=== PATIENT | male | born 1940 | race Caucasian/White ===

== ENCOUNTER 2019-02-20 08:18 | Day surgery (SDC) | payer OTHER, SELFPAY ==
[2019-02-15 08:01] VITALS: BMI 28.5
[2019-02-20] VITALS (9 sets, daily range): BP systolic 120–141; BP diastolic 65–84; PULSE 84–95; RESP 12–18; TEMP 36.3–36.6; O2SAT 92–98; BMI 28.0
--- NOTE | 2019-02-20 | DI.RAD.S_ITS ---
PROCEDURE: XR LUMBAR SPINE 2-3V INDICATIONS: L4-5 LAMINECTOMY TECHNIQUE: 2 views of the lumbar spine were acquired. COMPARISON: None. FINDINGS: Spot fluoroscopic images demonstrating surgical instruments projecting in the posterior paraspinal soft tissues at the level of L4-L5. Dictated by: Stevan Welch M.D. on 02/20/2019 at 17:37 Approved by: Stevan Welch M.D. on 02/20/2019 at 17:37
[2019-02-20] MEDS: LACTATED RINGERS 1,000 ML 42 ML IV (09:01)
--- NOTE | 2019-02-20 09:28 | PM.PREOP ---
Pre-operative Note Interval Note History & Physical reviewed/Exam performed by Physician: Yes Changes to H&P: No
[2019-02-20] MEDS: CEFAZOLIN 2 GM/100 ML FROZ.PIGGY IV (10:15)
--- NOTE | 2019-02-20 10:43 | SUR.OPER ---
Prone on spine table, head in foam head support, padded chest and pelvic supports, gel pad at knees, lower legs supported by pillows; nipples, genitalia and toes free of pressure, arms secured on foam padded arm boards at <90 degrees abduction. Tape over blanket at thigh secured to table.
[2019-02-20] MEDS: SODIUM CHLORIDE 0.9% 1,000 ML, GENTAMICIN 80 MG IRR (10:48)
[2019-02-20] MEDS: BUPIVACAINE 0.25% (PF) 8 ML, fentaNYL 100 MCG INJ (10:49)
[2019-02-20] MEDS: THROMBIN (RECOMBINANT) 5,000 UNIT VIAL 5000 UNIT TOP (10:49)
[2019-02-20] MEDS: VANCOMYCIN 1,000 MG VIAL 1000 MG TOP (10:50)
--- NOTE | 2019-02-20 11:50 | P.OP_ITS ---
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 They had failed conservative management and requested operative intervention. Risks and benefits of surgery were discussed and appropriate consents were obtained. Surgeon: Yahir Almonte Compositor Apprentice: Ria Jim Anesthesia Type: General Operative Notes Findings: None Closure Type: primary Estimated Blood Loss (mL): 10 Procedure in detail: Patient was brought to the operating room and intubated on the table. A time-out was performed. There were rolled over the well-padded prone position on the Darnell table. The back was prepped and draped in standard sterile fashion. Preoperative antibiotics were given. Using fluoroscopy, a 3 cm incision was made to the well-marked right of the midline at the L4-5 level. We used Bovie to come down to and split the fascia. We then used the Globus MARS dilators with fluoroscopy and then opened our retractors. The soft tissue was cleared off with Bovie, a marker was placed, an x-ray was taken to confirm positioning. We had started lateral to come in at an oblique angle to be able to adequately decompress the central stenosis as well as the disc herniation. We then brought in the microscope. A combination of high-speed bur and Kerrison were used to perform a right-sided laminectomy. We went well across the midline and removed the undersurface of the spinous process. We carefully pressed down on the dura with a right angle ball probe and removed the ligamentous and facet hypertrophy on the opposite side. At the end we had completely decompressed central stenosis in the canal. This was confirmed with running a ball probe cephalad, caudally, and out to both sides in the neural foramen and it was open. This was a full laminectomy with central decompression, not just a small approach for a diskectomy. We adjusted the retractor to go more vertically. We carefully retracted the dura medially and exposed the disc. This was cleared with bipolar. A scalpel used to perform an annulotomy and a pituitary was used to perform the diskectomy. The ball probe was swept underneath the dura along the disc to make sure there were no further loose fragments. This was also placed into the disc and moved around to make sure there were no further loose fragments. Once everything was adequately decompressed, the wound was copiously irrigated. An epidural catheter was filled with 100 mcg of fentanyl and 8 mL of 0.25% Marcaine. The dura was carefully depressed under the laminotomy site and the catheter was advanced 6 cm cephalad. The retractor was removed and the fascia was closed. The epidural catheter was then injected without resistance and removed. Vancomycin powder was placed in the wound. Superficial and skin were closed. Sterile dressing was placed. The patient was then rolled over, transferred to the stretcher, and brought to recovery room without complications. Complications: none Condition: stable Disposition: PACU Plan for aftercare: Outpatient. Limited activity for 2 weeks then may start physical therapy and activity as tolerated. He is going to restart his Lovenox bridge tomorrow and get started back on his Eliquis.
--- NOTE | 2019-02-20 12:01 | SUR.PHASEI ---
pt's post-op blood sugar was [address] Bermeo was notified.
--- NOTE | 2019-02-20 12:47 | SUR.PHASEII ---
Report to Cori
== END 2019-02-20 13:11 | disposition home or self-care (01) ==
PROVIDERS: PCP Family Medicine; Visit Provider Orthopaedic Surgery
PROC: (CPT 63047; principal; 2019-02-20 10:15)
DX: M48.061 Spinal stenosis, lumbar region without neurogenic claudication (principal); M51.16 Intervertebral disc disorders with radiculopathy, lumbar region; M70.61 Trochanteric bursitis, right hip; D68.51 Activated protein C resistance; I10 Essential (primary) hypertension; K21.9 Gastro-esophageal reflux disease without esophagitis; E11.9 Type 2 diabetes mellitus without complications; Z86.718 Personal history of other venous thrombosis and embolism; Z79.01 Long term (current) use of anticoagulants; Z85.51 Personal history of malignant neoplasm of bladder
CPT/HCPCS: 63047; 72100; 76000; J0690; J1100; J2250; J2405; J2704; J3010

== ENCOUNTER 2022-08-16 10:32 | Inpatient (IN) | payer OTHER, SELFPAY ==
[2022-08-04 13:44] VITALS: BMI 29.1
[2022-08-16] VITALS (15 sets, daily range): BP systolic 110–139; BP diastolic 45–74; PULSE 84–102; RESP 10–18; TEMP 36.6–37.4; O2SAT 86–98; BMI 29.1
[2022-08-16 11:23] LABS: COVID19 -Nasal RAPID Negative (Negative)
[2022-08-16] MEDS: LACTATED RINGERS 1,000 ML 42 ML IV ×2 (11:42→14:21)
[2022-08-16] MEDS: GABAPENTIN 300 MG CAPSULE PO (11:43)
--- NOTE | 2022-08-16 11:43 | PM.PREOP ---
Pre-operative Note COVID-19 COVID-19 status: Negative Result date/Date tested (Pos, Neg/Pending): 08/15/22 Criteria for continued procedure: Expected advancement of disease process, Possibility delay results in more complex future surgery or treatment, Increased loss of function, Continuing or worsening of significant or severe pain, Deterioration of the patient's condition or overall health and Delay expected to result in less-positive ultimate med/surg outcome Interval Note History & Physical reviewed/Exam performed by Physician: Yes Changes to H&P: No
[2022-08-16] MEDS: ACETAMINOPHEN 325 MG TABLET 975 MG PO (11:44)
--- NOTE | 2022-08-16 12:25 | PM.OP.1 ---
Operative Date/Time/Diagnoses Date of procedure: 08/16/22 Time of procedure: 12:45 Pre-op diagnosis: 1. L4-5, L5-S1 spinal stenosis 2. Lumbar post laminectomy syndrome Post-op diagnosis: same Procedure & Clinicians Procedure: 1. L4-5, L5-S1 Postero-lateral and posterior interbody fusion 2. L4-5, L5-S1 interbody cage placement. 3. L4-5, L5-S1 decompressive laminectomy with bilateral facetecomies 4. L4-5, L5-S1 Posterior segmental instrumentation 5. Austin of bone marrow from iliac crest 6. Utilization of microsurgical technique and operating microscope 7. Utilization of robotic assisted navigation Same procedure as scheduled: Yes Indications: Patient has been having chronic back pain and worsening lumbar radiculopathy. Patient had history of laminectomy in the past with worsening lumbar symptoms recently. Patient failed multiple conservative management with worsening pain weakness and numbness in his lower extremity. Patient has been having difficulty performing activity of daily living. After discussing risks benefits of treatment options, patient elected proceed with surgery. Surgeon: Jarrod Barbosa Mix Mill Tender: Ramón Monte Click Yes if Unassisted: No Anesthesia Type: General Operative Notes Closure Type: primary Specimen(s): none sent Prosthetic devices, grafts, tissues, transplants, or devices: GLobus CREO MIS screws, RIse cages Applied: catheter Estimated Blood Loss (mL): 100 Blood products transfused: none Procedure in detail: Patient was seen in the preoperative area. Risks and benefits of the surgery was discussed with the patient. Informed consent was obtained from the patient and placed in the chart. Surgical site was marked. Patient was taken to the operative room. General anesthesia was administered. Prophylactic antibiotic was given to the patient less than 30 min before the incision was made. Patient was placed into a prone position on the Darnell table. Patient's back was then prepped and draped in the sterile fashion. Time-out was performed at this time. After patient was prepped and draped, patient's PSIS was palpated and marked bilaterally. Small 1 cm incision was made over the PSIS for placement of the reference probes. Two trocar was placed into the PSIS 1 on each side. The reference probe was attached to the trocar of the reference apparatus. At this time the C-arm imaging was used to confirm AP and lateral of L4-L5, L5-S1 vertebrae and merged the C-arm imaging using the [employer] robotic navigation system with the CT of the lumbar spine. After successful merging was completed and confirmed, skin marker was used to franco out the skin incision using the [employer] robotic arm. Bilateral incision was made at this time. Pre templated trajectory was used and guided using the [employer] robotic navigation system for bilateral L4, L5, S1 pedicle screw placement. This was done by using the robotic arm to guide the high-speed bur to make a cortical entry point. Next a drill was placed also using the robotic arm and guided using the navigation system drilling partially through bilateral L4, L5 and S1 pedicles. Next L4, L5, S1 pedicle screws it was pre templated and measured was placed onto the power pole truck driver and inserted into the pedicles bilaterally. After all 6 screws were placed C-arm imaging was taken of both AP and lateral to confirm the placement. Excellent placement of the screws were confirmed and a matched precisely with the pre planned screw placement using the navigation system. MARs retractor was inserted using [employer] guidence. Globus MARS retractors was placed inside the incision and docked onto the L4 and L5 lamina. Using microsurgical technique and operating microscope, a L4, L5 laminectomy and L4-5, L5-S1 facetectomy was performed using a Kerrison rongeur. Patient was found have severe lateral recess and neural foramen stenosis which was fully decompressed after the laminectomy facetectomy. More than 75% of the facets were removed during the process of decompression rendering L4-5, L5-S1 level grossly unstable and required a fusion procedure at the same time. The disc space at L4-5, L5-S1 was identified, and a total diskectomy was performed at L4-5, L5-S1 level. The endplates were decorticated using a rasp and shaver. The total diskectomy and decortication was performed at L4-5, L5-S1 level in order to to accomplish a L4-5, L5-S1 fusion. The local bone from the laminectomy and facetectomy was saved for local bone grafting. After the total diskectomy and decortication was completed, Trifecta bone graft material was combined with local bone that was harvested earlier. At this time, a separate skin is incision was made over the iliac crest. A Jamshidi needle was inserted into the iliac crest through a separate skin incision. 5 cc of bone marrow aspiration was obtained through the separate skin incision using a Jamshidi needle from the iliac crest. The bone marrow aspiration was combined with local bone and the Trifecta bone grafting material. The bone grafting material was placed into the L4-5, L5-S1 interbody space along with a expandable cage. The cage was expanded to its maximum height using the torque limiting screwdriver. The disc preparation as well as the cage insertion were also performed under navigation guidance. After the cage was placed, AP and lateral C-arm imaging was taken to confirm placement of the cage and excellent position was confirmed. Globus MARS retractor was inserted and docked onto the L4-5, L5-S1 posterolateral gutter on the right side. Using the power drill, posterior-lateral decortication was performed at L4-5, L5-S1 level until bleeding cortical bone was identified. The remaining bone grafting material was placed into the L4-5, L5-S1 posterior lateral gutter he order to accomplish posterolateral fusion at the L4-5, L5-S1 level. At this time the tulips were attached to the L4, L5, S1 pedicle screw shanks. After measuring the length of the rods, they were inserted into the tulips of the pedicle screws and locked in place using locking caps and torque limiting screwdriver bilaterally. Total 6 caps and 2 titanium rods was used in order to complete the posterior instrumentation construct. After all the hardware was placed, and confirmed with AP and lateral C-arm imaging, the wound was then irrigated with sterile normal saline and packed with Ray-Judy gauze for 3 min to accomplish hemostasis. After the gauze was removed the deep fascia was closed with #1 Vicryl suture. The subcutaneous layer was closed with 2-0 Vicryl. The skin was closed with skin michael. Patient tolerated the procedure well. There were no complications. Neuro monitoring system was used to monitor patient's neurologic status throughout entire procedure. There was no disturbance of the neural monitoring signals throughout the case. Complications: none Post-operative Disposition: PACU Plan for aftercare: Admit to inpatient hospital
[2022-08-16] MEDS: CEFAZOLIN 2 GM/100 ML PREMIX 100 ML IV ×2 (12:27→20:25)
[2022-08-16] MEDS: BUPIVACAINE LIPOSOME 266 MG/20 ML VIAL INJ (13:05)
[2022-08-16] MEDS: BUPIVACAINE 0.5% W/ EPI (PF) 30 ML VIAL INJ (13:05)
--- NOTE | 2022-08-16 15:13 | DI.RAD.S_ITS ---
PROCEDURE: XR LUMBAR SPINE 2-3V INDICATIONS: L4-5, L5-S1 TLIF TECHNIQUE: 2 operative C-arm views of the lumbar spine were acquired. COMPARISON: [facility], PEDRO LUIS, XR LUMBAR SPINE 2-3V, 02/20/2019, 10:49. FINDINGS: C-arm imaging utilized during posterior lateral didi and pedicle screw fixation from L4 through S1 and interbody prosthesis material placement. No radiographic evidence of complications. IMPRESSION: Operative C-arm imaging utilized during lumbar surgery. Dictated by: Otis Mayo M.D. on 08/16/2022 at 16:47 Approved by: Otis Mayo M.D. on 08/16/2022 at 16:48
[2022-08-16] MEDS: OXYCODONE IR 5 MG TABLET PO (16:10)
--- NOTE | 2022-08-16 16:13 | SUR.PHASEI ---
transfered to floor all belongings with patient.
[2022-08-16] MEDS: SODIUM CHLORIDE 0.9% 1,000 ML 100 ML IV (18:37)
--- NOTE | 2022-08-16 19:27 | PC.NURSE ---
admit to ACU s/p Tlif w/ dr Barbosa. patient is alert and oriented, prefers to sleep at this time. easily awakened. i just want to rest. oriented to room, call light and TV remote. NS at 100/hour infusing. SCDs on, + CSM checks. declined dinner. denies pain/discomfort. call light w/in reach.
[2022-08-16] MEDS: AMLODIPINE 5 MG TABLET 10 MG PO (20:23)
[2022-08-16] MEDS: LOSARTAN 50 MG TABLET 100 MG PO (20:24)
[2022-08-16] MEDS: GABAPENTIN 300 MG CAPSULE 600 MG PO (20:24)
[2022-08-16] MEDS: DOCUSATE 100 MG CAPSULE PO (20:25)
[2022-08-16] MEDS: SENNOSIDES 8.6 MG TABLET 17.2 MG PO (20:25)
[2022-08-16] MEDS: ACETAMINOPHEN 325 MG TABLET 650 MG PO (20:27)
[2022-08-17] VITALS (7 sets, daily range): BP systolic 104–144; BP diastolic 55–67; PULSE 84–115; RESP 16–18; TEMP 36.2–38.1; O2SAT 90–94
[2022-08-17] MEDS: CEFAZOLIN 2 GM/100 ML PREMIX 100 ML IV (05:04)
[2022-08-17] MEDS: ACETAMINOPHEN 325 MG TABLET 650 MG PO (05:04)
[2022-08-17 06:23] LABS: Hemoglobin 13.1 g/dL (13.5-17.5)
--- NOTE | 2022-08-17 07:32 | P.PN_ITS ---
Subjective Subjective Date Patient Seen: 08/17/22 Time Patient Seen: 07:33 Interval history: Awake lying comfortable in bed this morning. He denies pain and only notes some discomfort that has been well treated with Tylenol. He is looking forward to working with physical therapy today and plans to discharge home tomorrow. Denies nausea, vomiting, fever, chills. Exam Vital Signs (past 8 hours): - 08/16/22 23:57 08/16/22 23:56 08/17/22 03:00 Temperature 99.3 F 99.3 F Pulse Rate 89 84 Respiratory Rate 18 18 Blood Pressure 120/62 116/61 Pulse Oximetry 93 93 Oxygen Delivery Method Nasal Cannula Oxygen Flow Rate 2 2 2 Fraction of Inspired Oxygen 28 Fraction of Inspired Oxygen 28 Oxygen Delivery Method Nasal Cannula Oxygen Flow Rate 2 Narrative Exam Narrative: Awake, alert, and oriented. Intraoperative dressing clean, dry, and intact. Strength and sensation intact to bilateral lower extremities. Bilateral calf soft, compressible, nontender with no palpable cords or masses. Saavedra catheter in place, urine output acceptable. Objective Labs 08/17/22 05:30 Labs: Laboratory Results - last 24 hr 08/16/22 08/17/22 10:50 05:30 Hgb 13.1 L Hct 38.0 L SARS-CoV-2 (PCR) Negative [facility] Medical History Bladder cancer CKD stage G3a/A2, GFR 45-59 and albumin creatinine ratio 30-299 mg/g Diabetes Factor V Leiden mutation Hemidiaphragm paralysis History of DVT of lower extremity HTN (hypertension) Infectious viral hepatitis Pulmonary emboli (~03/2018) Pulmonary nodules Saddle pulmonary embolus (~03/2018) Syncope Trochanteric bursitis Venous thromboembolism (VTE) Surgical History History of arthroscopy of hip (02/27/21) History of colonoscopy (12/26/17) History of ERCP (~2011) Hx of appendectomy (~194) Hx of cholecystectomy (~2011) Hx of colonoscopy (12/26/17) Hx of cystoscopy (12/08/18) Hx of hernia repair Hx of laminectomy (02/20/19) Hx of transurethral resection of prostate Social History household members: spouse Smoking Status: Never smoker Assessment & Plan Post-op Postoperative Procedures: Procedures Operation Date: 08/16/22 12:15 Actual Procedure Side Surgeon p L4-5, L5-S1 TLIF w. posterior instrumentation -Robot Jarrod Barbosa MD Postoperative day: 1 Postoperative status: doing well Postoperative status narrative: Patient progressing as expected after surgery. Postoperative plan narrative: Plan to work with physical therapy today and discharge to home when safe. Limit bending and twisting, no lifting over 10 lb. Quality VTE Deep Vein Thrombosis/Pulmonary Embolism Present on Admission: No
[2022-08-17] MEDS: GABAPENTIN 300 MG CAPSULE PO (08:10)
[2022-08-17] MEDS: CHOLECALCIFEROL (VITAMIN D3) 5,000 UNIT TABLET 5000 UNIT PO (08:10)
[2022-08-17] MEDS: DOCUSATE 100 MG CAPSULE PO ×2 (08:10→20:52)
[2022-08-17] MEDS: HYDROCODONE/ACET 5/325 TABLET 1 TAB PO ×3 (09:21→20:53)
--- NOTE | 2022-08-17 10:15 | PT.IIE ---
Current Diagnoses Other spondylosis with radiculopathy, lumbar region (08/16/22) Postlaminectomy syndrome, not elsewhere classified (08/16/22) Surgery Performed Operation Date: 08/16/22 12:15 Actual Procedures p L4-5, L5-S1 TLIF w. posterior instrumentation -Robot - Jarrod Barbosa MD Surgical History (Last Reviewed 08/17/22 @ 07:36 by Lea Manzano PA-C) History of arthroscopy of hip (02/27/21) History of colonoscopy (12/26/17) History of ERCP (~2011) Hx of appendectomy (~194) Hx of cholecystectomy (~2011) Hx of colonoscopy (12/26/17) Hx of cystoscopy (12/08/18) Hx of hernia repair Hx of laminectomy (02/20/19) Hx of transurethral resection of prostate Medical History (Last Reviewed 08/17/22 @ 07:36 by Lea Manzano PA-C) Bladder cancer CKD stage G3a/A2, GFR 45-59 and albumin creatinine ratio 30-299 mg/g Diabetes Factor V Leiden mutation Hemidiaphragm paralysis History of DVT of lower extremity HTN (hypertension) Infectious viral hepatitis Pulmonary emboli (~03/2018) Pulmonary nodules Saddle pulmonary embolus (~03/2018) Syncope Trochanteric bursitis Venous thromboembolism (VTE) Physical Therapy Inpatient Evaluation/Re-Eval M1 PT/OT-IP Prior Functional Status Start: 08/17/22 11:27 Freq: NEEDED Status: Active Protocol: Document 08/17/22 10:15 AB (Rec: 08/17/22 11:42 AB [id number]) Medical Review Prior Functional Status Medical History Reviewed Yes Communication able to make needs known Mobility and Gait pt stated that he is modified independent with all mobilities and ambulation using a SPC; has been using crutches for stair climbing Social History Household Members spouse Living Arrangements House Number of Floors (Floors) Two Floors Number of Stairs To Enter/Railing? 2 steps to enter without rails has 14 steps R rail ascending to bedroom level Home Environment High Toilet,Walk in Shower Home Equipment Front Wheel Walker,Straight Cane,Crutches,Hand Held Shower Additional Social History Comment pt has an adjustable bed M2 PT-IP Current Condition Start: 08/17/22 11:27 Freq: NEEDED Status: Active Protocol: Document 08/17/22 10:15 AB (Rec: 08/17/22 11:42 AB [email or web address]) Physical Therapy Current Condition Current Condition Evaluation Date 08/17/22 Treatment Diagnosis s/p L4-5, L5S1 TLIF; difficulty in walking Onset Date 08/16/22 M3 PT-IP Subjective Start: 08/17/22 11:27 Freq: NEEDED Status: Active Protocol: Document 08/17/22 10:15 AB (Rec: 08/17/22 11:42 AB [email or web address]) Subjective Physical Therapy Visit Type Type Initial Evaluation Visit Start Time 10:15 Visit Stop Time 10:45 Total Visit Minutes 30 Number of VIDEO PLAYER MECHANIC Visits 0 Physical Therapy Visit Comments Patient Comments agreeable to do PT Therapy Pain Assessment Pain When Pain Assessed At Rest Pain Present Pain Present Pain Reported Location Lower Back Intensity 4 Scale Used Numeric (0 - 10) Pain Management Techniques Distraction,Modification of Treatment,Re-positioning, Timing of Activity with Medications M4 PT-IP Mobility and Gait Start: 08/17/22 11:27 Freq: NEEDED Status: Active Protocol: Document 08/17/22 10:15 AB (Rec: 08/17/22 11:42 AB [email or web address]) PT-Bed Mobility Assessment Rolling Type of Rolling Log Rolling Level of Assist Minimal Assistance Supine to Sit Supine to Sit Minimal Assistance Sit to Supine Sit to Supine Minimal Assistance PT-Transfer Assessment Sit to and From Stand Sit to and from Stand Maximum Assistance,1 Person Assistance,Use of Upper Extremities Equipment Transfer Assistive Device Front Wheeled Walker Orthotic/Prosthetic Devices or Brace: No Transfers Transfer Destination Bed,Chair Transfer Technique ambulated Transfer Ability Level of Assist Moderate Assistance,1 Person Assistance,Use of Upper Extremities Comments Mobility Comments pt sitting on the chair. agreed to do PT. educated on back precautions and log roll bed mobility. completed sit to stand from chair max A and max cues and ambulated in room ~ 30 ft mod A and cues. presents with heavy UE use on FWW. sat on EOB and with uncontrolled sitting requiring max A. completed log roll sit<>supine min A and max cues . completed sit <>stand from EOB max A and max cues. educated on techniques and completed again max A. step transfer to chair using FWW mod A and cues. positioned in bed call light and table placed within reach. Gait Assessment Gait Gait Assistance Required: Moderate Assistance,1 Person Assist Distance (Feet) 30 Able to Maintain Weight Bearing Status Yes During Gait Assistive Devices Assistive Device Gait Belt,Front Wheeled Walker Orthotic/Prosthetic Devices or Brace: No Gait Deviations General Gait Pattern Decreased Stride Length, Decreased Feet Clearance,Step- to Gait Factors Limiting Gait Function Factors Limiting Gait Function Decreased Activity Tolerance, Decreased Strength,Limited Range of Motion,Pain,Poor Balance,Poor Safety Awareness PT-Balance Assessment Sitting Balance and Reactions Static Sitting Balance Ability Good Dynamic Sitting Balance Ability Fair Standing Balance and Reactions Static Standing Balance Ability Fair Dynamic Standing Balance Ability Poor Device Used FWW M5 PT-IP Objective Assessments Start: 08/17/22 11:27 Freq: NEEDED Status: Active Protocol: Document 08/17/22 10:15 AB (Rec: 08/17/22 11:42 AB [id number]) Orientation Orientation/Cognition Level of Alertness Alert Orientation Name,Place,Situation Language Function Ability No Deficits Noted Safety Awareness Decreased Safety Awareness Memory Description No Deficits Noted Gross Range of Motion Lower Extremity ROM Assessment Within Functional Limits Strength Lower Extremity Strength Assessment Bilaterally Impaired Hip 3+/5 Knee 4-/5 Sensation Assessment Sensation Gross Sensation WNL Muscle Tone Muscle Tone WNL Yes M6 PT-IP Treatment Start: 08/17/22 11:27 Freq: NEEDED Status: Active Protocol: Document 08/17/22 10:15 AB (Rec: 08/17/22 11:42 AB [email or web address]) Physical Therapy Treatment Education Education Provided Precautions,Weight Bearing Status,Post-Op Packet,Safety M7 PT-IP Assessment and Plan Start: 08/17/22 11:27 Freq: NEEDED Status: Active Protocol: Document 08/17/22 10:15 AB (Rec: 08/17/22 11:42 AB [email or web address]) PT Summary Assessment and Plan Potential Rehabilitation Potential Fair Status of Condition at Evaluation Evolving Summary Impairments Pain,ROM,Strength,Balance, Coordination,Sensation,Tone, Cognition,Bed Mobility, Transfers,Gait,Activity Tolerance Assessment Summary pt requiring max A for sit to stand and mod A for ambulation using FWW with heavy UE use on fWW. pt has stairs to enter the to get to 2nd floor bedroom and is not appropriate to do stair climbing at this time. will continue to assess progress. will conduct caregiver training when appropriate. Goals Bed Mobility Goal Standby Assistance Transfer Goal Standby Assistance,Front Wheeled Walker Gait Goal Standby Assistance,Front Wheel Walker Gait Distance 150 Other Goals up/down 2steps using crutches SBA up/down 14 steps using R rail +SPC or crutches SBA Days to Meet Goals 5 Frequency of Treatment Frequency Of Treatment Twice a Day Treatment Plan Physical Therapy Treatment Plan Bed Mobility Training,Transfer Training,Gait Training, Therapeutic Exercise,Balance Retraining,Post Op Education, Discharge Planning,Hot or Cold Pack,Neuromuscular Re-ed, Coordination Retraining,Manual Therapy Precautions Lumbar Precautions Log Roll,No Twisting,Limit Bending,Lifting Restriction of 10 lbs,Gait Belt above Incisional Area Recommendations To Nursing Amount of Assist Needed 1 Person Assist Discharge Recommendations PT Discharge Recommendations Home with Assistance,Home Health Transportation Needs at Discharge Private Vehicle,Wheelchair/ Cabulance
--- NOTE | 2022-08-17 10:39 | PC.NURSE ---
Addendum entered by Saw Johnson R.N. 08/17/22 18:58: Pt up in chair without overt difficulty most of shift. Dressing CDI. Voided 125 so far this shift. Original Note: Pt alert and oriented zafar post op course well. Up to recliner. needs some cuing to stand tall, log roll and be aware of where his feet are placed. PT Angela presently working with Pt.
--- NOTE | 2022-08-17 13:08 | OT.IP.EVAL ---
Current Diagnoses Other spondylosis with radiculopathy, lumbar region (08/16/22) Postlaminectomy syndrome, not elsewhere classified (08/16/22) Surgery Performed Operation Date: 08/16/22 12:15 Actual Procedures p L4-5, L5-S1 TLIF w. posterior instrumentation -Robot - Jarrod Barbosa MD Past Medical History (Last Reviewed 08/17/22 @ 07:36 by Lea Manzano PA-C) Bladder cancer CKD stage G3a/A2, GFR 45-59 and albumin creatinine ratio 30-299 mg/g Diabetes Factor V Leiden mutation Hemidiaphragm paralysis History of DVT of lower extremity HTN (hypertension) Infectious viral hepatitis Pulmonary emboli (~03/2018) Pulmonary nodules Saddle pulmonary embolus (~03/2018) Syncope Trochanteric bursitis Venous thromboembolism (VTE) Surgical History (Last Reviewed 08/17/22 @ 07:36 by Lea Manzano PA-C) History of arthroscopy of hip (02/27/21) History of colonoscopy (12/26/17) History of ERCP (~2011) Hx of appendectomy (~1948) Hx of cholecystectomy (~2011) Hx of colonoscopy (12/26/17) Hx of cystoscopy (12/08/18) Hx of hernia repair Hx of laminectomy (02/20/19) Hx of transurethral resection of prostate Occupational Therapy Inpatient Evaluation/Re-Eval M1 PT/OT-IP Prior Functional Status Start: 08/17/22 11:27 Freq: NEEDED Status: Active Protocol: Document 08/17/22 12:39 [facility] (Rec: 08/17/22 17:11 [facility] [id number]) Medical Review Prior Functional Status Medical History Reviewed Yes Communication able to make needs known Mobility and Gait pt stated that he is modified independent with all mobilities and ambulation using a SPC; has been using crutches for stair climbing Activities of Daily Living and IADL's Pt states able to do all his ADl's with increased time. Social History Household Members spouse Living Arrangements House Number of Floors (Floors) Two Floors Number of Stairs To Enter/Railing? 2 steps to enter without rails has 14 steps R rail ascending to bedroom level Home Environment High Toilet,Walk in Shower Home Equipment Front Wheel Walker,Straight Cane,Crutches,Hand Held Shower Additional Social History Comment pt has an adjustable bed M2 OT-IP Current Condition Start: 08/17/22 16:57 Freq: Status: Active Protocol: Document 08/17/22 12:39 [facility] (Rec: 08/17/22 17:11 [facility] [id number]) Occupational Therapy Current Condition Current Condition Evaluation Date 08/17/22 Treatment Diagnosis S/p L4-5, L5-S1 TLIF Diagnosis Onset Date Post Operative Precautions Lumbar Precautions Log Roll,No Twisting,Limit Bending,Lifting Restriction of 10 lbs,Gait Belt above Incisional Area M3 OT- IP Subjective and Pain Start: 08/17/22 16:57 Freq: Status: Active Protocol: Document 08/17/22 12:39 [facility] (Rec: 08/17/22 17:11 [facility] [id number]) OT- Subjective Occupational Therapy Visit Type Type Initial Evaluation Visit Start Time 12:39 Visit Stop Time 13:08 Total Visit Minutes 29 Occupational Therapy Visit Comments Patient Comments Pt agreed t get up. Patient/Caregiver Goals To go home. OT Pain Assessment Pain When Pain Assessed At Rest Pain Present Pain Present Pain Reported Location Lower Back Intensity 2 M4 OT- IP ADL's Start: 08/17/22 16:57 Freq: Status: Active Protocol: Document 08/17/22 12:39 [facility] (Rec: 08/17/22 17:11 [facility] [id number]) OT [id number] Comments OT Self-Feeding Comments No issues anticipated. OT ADL-Grooming General Evaluation Grooming Ability Standby Assistance Areas Needing Assistance Retrieving/Set-up of Grooming Items OT ADL-Oral Care General Eval Oral Care Ability Standby Assistance Areas of Assistance Retrieving/Set-Up of Items Comments Oral Care Comments VC to hinge at his hips or spit in to a cup to best follow his back precautions. OT ADL-Dressing General Eval Lower Body Dressing Ability Maximum Assistance Areas Needing Assistance Socks Comments OT Dressing Comments Able to practice use of sock aid and drapery and upholstery measurer, pt thinking to order LB dressing equipment . OT ADL-Toileting Comments OT Toileting Comments Pt able to simulate reaching and able to reach , however suggested will probably be easier to stand and wipe and also use of wet-ones will be helpful. OT ADL-Bathing Comments OT Bathing Comments Suggested to do showering tomorrow, pt adamantly refusing and states he will be fine at home. Pt will benefit from a shower chair. M5 OT- IP IADL's Start: 08/17/22 16:57 Freq: Status: Active Protocol: Document 08/17/22 12:39 [facility] (Rec: 08/17/22 17:11 [facility] [id number]) OT-Instrumental Activities of Daily Living Home Safety Awareness Awareness of Need for Assistance at Home Good Awareness Home Safety Comments Pt's to assist pt as needed as home. M6 OT- IP Functional Cognition Start: 08/17/22 16:57 Freq: Status: Active Protocol: Document 08/17/22 12:39 [facility] (Rec: 08/17/22 17:11 [facility] [id number]) Cognitive Factors Limiting Selfcare Function Cognitive Ability Level of Alertness Alert Patient Orientation Name,Place,Situation Attention Span Ability Capable of Focused Attention, Capable of Sustained Attention Ability to Follow Commands Able to Follow One Step Commands Safety Awareness Decreased Recall of Precautions,Decreased Ability to Apply Precautions Cognitive Comments Cognitive Assessment Comments Pt needing reminders to recall for back precautions and incorporate during ADL and mobility needs. Pt needing cues to push up from the armrests of the recliner and not stop when coming to stand. OT- Vision and Hearing OT- Hearing Assessment OT- Hearing Assessment WFL M7 OT- IP Mobility and Balance Start: 08/17/22 16:57 Freq: Status: Active Protocol: Document 08/17/22 12:39 [facility] (Rec: 08/17/22 17:11 [facility] [id number]) OT-Transfer Assessment Sit to and From Stand Sit to and from Stand Maximum Assistance Transfers Transfer Ability Moderate Assistance Technique Transfer Destination Bed Transfer Technique Stand Step Pivot Devices Transfer Assistive Devices Gait Belt,Front Wheeled Walker Comments Mobility Comments Initiated training with pt's to isaias/doff the gait belt. At this time pt needing MAX AX 1 to stand to FWW and able to walk with MIN/MODA with FWW and vc to engage his legs. OT- Balance Assessment Sitting Balance and Reactions Static Sitting Balance Ability Good Dynamic Sitting Balance Ability Good Standing Balance and Reactions Static Standing Balance Ability Fair Dynamic Standing Balance Ability Poor M9 OT- IP Assessment and Plan Start: 08/17/22 16:57 Freq: Status: Active Protocol: Document 08/17/22 12:39 [facility] (Rec: 08/17/22 17:11 [facility] [id number]) OT Summary Assessment and Plan Potential Rehabilitation Potential Good Analytic Complexity at Evaluation Low Summary OT Impairments Pain,Balance,Functional Mobility,Dressing,Toileting, Bathing,Toilet Transfers, Shower Transfers Progress Towards Goals Progressing Toward Goals Assessment Summary Pt low complexity and main barriers are steps, pain and transitions. Pt's has initiated caregiver training and to continue tomorrow. Pt currently MAX AX 1 to stand and too much assist for his to handle, therefore pending progress and caregiver training, pt to have short rehab stay versus home with 24 /7 assist and home health. Goals Grooming Goal Independent Dressing Goal Minimal Assistance Toileting Goal Standby Assistance Bathing Goal Minimal Assistance Toilet Transfer Goal Independent Shower Transfer Goal Standby Assistance Days to Meet Goals 10 Frequency of Treatment Frequency Of Treatment Once a Day Treatment Plan OT Treatment Plan ADL Training,Functional Mobility,Patient/Family Education,Discharge Planning Other Treatment Recommendations and Next caregiver training Treatment Focus Discharge Recommendations OT Discharge Recommendations Home with 24/7 Assist Available,Home Health,Home vs SNF Home Equipment Needs shower chair, LB dressing equipment Transportation Needs at Discharge Wheelchair/Cabulance
--- NOTE | 2022-08-17 14:44 | CM.DANOTE ---
DCP Assessment: Patient is an 81 yr old male who was admitted for TLIF preformed by Dr. DELATORRE. CM met with patient at the bedside and explained role. Patient was alert and Oriented x4 during meeting. Patient currently lives in [place] in a two story house with his niurka who is his DPOA. Patient worked with PT and was able to ambulate well and they plan to do resident care manager training and stairs tomorrow. Patient is Independent with all ADLs and drives at his baseline. Patient stated he even works out 2 hours a day 4 days a week and feels ready to head home when PT and MD clear him. Patients will be providing transport home when ready and patient has F/O appointment scheduled for two weeks from yesterday. Patient and his agree that Home health PT and OT will be helpful at [place]. CM showed Medicare choice list on Ipad and patient chose [facility]. CM called Hemant with [facility] who stated he will start the referral. CM faxed over completed F2F and clinicals for there review. Patients PCP Lea Britton Insurance: [employer] and self pay Plan: [place] home with [facility] and when medically cleared. CM team will follow up with Hemant with [facility] tomorrow to make sure they have everything they need. Ailyn Chen RNice rink attendant Discharge Planning/Care Management Advanced directive, confirm from FAMILY Start: 08/16/22 19:11 Freq: Q24H Status: Complete Protocol: Document 08/16/22 19:11 AM (Rec: 08/16/22 22:54 AM [id number]) Advance Directive, confirm on record Time 19:00 Person contacted a Copy received No CM Discharge Assessment Start: 08/17/22 14:38 Freq: Status: Active Protocol: Document 08/17/22 14:38 HS (Rec: 08/17/22 14:44 HS [id number]) Discharge Planning Assessment Assigned Resident Director Ailyn Chen RNice rink attendant DPOA/Assigned Designee Name Niurka Celis- Contact Information [phone] Advance Directives? Yes Advance Directives on File No History Provided By Patient,Significant Other, Medical Record Has Patient been admitted in last 30 No days? Prior Living Arrangements House Household Members spouse Type of transporation used prior to Drives own vehicle admit Independent with ADL's Yes Is patient alert and oriented? Yes Caregiver for Another No DME Already Rented / Owned FWW / Walker,Cane Patient/Family Preference Home with Home Health Comment Patient open to Home health - choice on Ipad was [facility] Barriers to Discharge No Discharge Plan Home with Home Health Referrals Initiated Home Health If patient plan is home with home health Yes : Has signed face to face form been completed? Medicare Choice List Provided Yes Medicare choice list reviewed on patient electronic tablet with SNF/HH Preference [facility] Contact Name/Phone Hemant [phone] Whiteboard Updated in Patient Room with Yes name and ext. # of Resident Director Review Status In Process Next Review Type Continued Stay Review Pre-Anesthesia Assessment Start: 08/04/22 13:44 Freq: Status: Active Protocol: Document 08/04/22 13:44 [facility] (Rec: 08/04/22 15:18 [facility] [id number]) Pre-Anesthesia Assessment PAC Comment Unable to reach pt for scheduled phone assess, chart review only Patient Information Reviewed Via Phone Assessment Assessment Completed With Patient Primary Care Provider Lea Britton Medical Clearance Received Yes Specialist Seen Senior Portfolio Analyst,Motorboat Mechanic Inboard, Orthopedist,Orthopedics Teacher Comment PCP clearance form 05/11/2022, Pulmonary & Nephrology records scanned Primary Language Burmese Title Agent Required No Height 182.88 cm Weight 97.522 kg Body Mass Index (BMI) 29.1 Barriers to Learning None Hx Anesthesia Reactions No Hx Family Anesthesia Reaction No Hx Malignant Hyperthermia No Hx Blood Transfusion Reaction No Anesthesia Review Requested Yes: SUELLEN w/Surgeon office requested re: EKG changes Pain Present Pain Reported Musculoskeletal Symptoms Back Pain Hx Sleep Apnea No CPAP/BIPAP use not prescribed Hx SOB Yes Hx Syncope or Dizziness Yes Anti-Coagulant Therapy Yes: Hold warfarin 5 days prior, Lovenox bridge per PCP Has a Senior Portfolio Analyst Yes: Last visit 12/24/[address] Flowers Cardiac Testing Yes Hx Pacemaker/ICD No Pacemaker Rep Required? No Comment Cardiac records scanned Hx Urinary Self Catheterization No Diabetes Yes Presence of External or Internal Medical No Devices Lives With spouse Patient Discharge Plan Description Return Home Advance Directives? Yes Power of Snuff Container Inspector Yes Power of Snuff Container Inspector Name Niurka Celis Power of Snuff Container Inspector
--- NOTE | 2022-08-17 14:55 | PT.IPTN ---
Current Diagnoses Other spondylosis with radiculopathy, lumbar region (08/16/22) Postlaminectomy syndrome, not elsewhere classified (08/16/22) Surgery Performed Operation Date: 08/16/22 12:15 Actual Procedures p L4-5, L5-S1 TLIF w. posterior instrumentation -Robot - Jarrod Barbosa MD Physical Therapy Treatment Note M2 PT-IP Current Condition Start: 08/17/22 11:27 Freq: NEEDED Status: Active Protocol: Document 08/17/22 10:15 AB (Rec: 08/17/22 11:42 AB [id number]) Physical Therapy Current Condition Current Condition Evaluation Date 08/17/22 Treatment Diagnosis s/p L4-5, L5S1 TLIF; difficulty in walking Onset Date 08/16/22 M3 PT-IP Subjective Start: 08/17/22 11:27 Freq: NEEDED Status: Active Protocol: Document 08/17/22 14:25 LJ (Rec: 08/17/22 14:55 LJ [id number]) Subjective Physical Therapy Visit Type Type Treatment Note Visit Start Time 13:07 Visit Stop Time 13:23 Total Visit Minutes 16 Notes in room. Beginning CGT which will be completed tomorrow at 1300 Number of APPLIANCE SERVICE SUPERVISOR Visits 1 Physical Therapy Visit Comments Patient Comments agreeable to do PT Therapy Pain Assessment Pain When Pain Assessed At Rest Pain Present Pain Present Pain Reported M4 PT-IP Mobility and Gait Start: 08/17/22 11:27 Freq: NEEDED Status: Active Protocol: Document 08/17/22 14:25 LJ (Rec: 08/17/22 14:55 LJ [id number]) PT-Transfer Assessment Sit to and From Stand Sit to and from Stand Contact Guard Assistance, Minimal Assistance,1 Person Assistance,Use of Upper Extremities Equipment Transfer Assistive Device Gait Belt,Front Wheeled Walker Orthotic/Prosthetic Devices or Brace: No Transfers Transfer Destination Chair Transfer Technique ambulated Transfer Ability Level of Assist Contact Guard Assistance, Minimal Assistance,1 Person Assistance,Use of Upper Extremities Comments Mobility Comments Pt sitting in chair, in room. donned gait belt but didn't want to assist in standing. CGA-Chloe sit>stand from chair. Chloe for slight assist with balance at terminal point of standing. Pt initially with heavy lean on FWW and step-to gait pattern. Cued to lower shoulders and walk with normal gait cueing to lift feet more and use step-through pattern. Once pt relaxed UE use of FWW was able to normalize gait pattern and manage walker well . Pt ambulated in hallway ~200 '. Pt ambulated to chair and turned to sit in chair. Pt completed sitting in chair with good control using are rests. Pt stated his pain level had risen slightly. Instructed pt to use call light and request pain medication. Pt was left with in room and all needs within reach. Gait Assessment Gait Gait Assistance Required: Standby Assistance,Contact Guard Assist,Minimum Assistance,1 Person Assist Distance (Feet) 200 Able to Maintain Weight Bearing Status Yes During Gait Assistive Devices Assistive Device Gait Belt,Front Wheeled Walker Orthotic/Prosthetic Devices or Brace: No Gait Deviations General Gait Pattern Decreased Stride Length, Decreased Feet Clearance Factors Limiting Gait Function Factors Limiting Gait Function Decreased Activity Tolerance, Decreased Strength,Limited Range of Motion,Pain,Poor Balance Comments Gait Comments Once pt realized he could push the walker smoothly in front of him and walk with a normal gait pattern rather than step- to pattern, he did very well with ambulation. M5 PT-IP Objective Assessments Start: 08/17/22 11:27 Freq: NEEDED Status: Active Protocol: Document 08/17/22 10:15 AB (Rec: 08/17/22 11:42 AB [id number]) Orientation Orientation/Cognition Level of Alertness Alert Orientation Name,Place,Situation Language Function Ability No Deficits Noted Safety Awareness Decreased Safety Awareness Memory Description No Deficits Noted Gross Range of Motion Lower Extremity ROM Assessment Within Functional Limits Strength Lower Extremity Strength Assessment Bilaterally Impaired Hip 3+/5 Knee 4-/5 Sensation Assessment Sensation Gross Sensation WNL Muscle Tone Muscle Tone WNL Yes M6 PT-IP Treatment Start: 08/17/22 11:27 Freq: NEEDED Status: Active Protocol: Document 08/17/22 14:25 LJ (Rec: 08/17/22 14:55 LJ [id number]) Physical Therapy Treatment Education Education Provided Precautions,Weight Bearing Status,Safety M7 PT-IP Assessment and Plan Start: 08/17/22 11:27 Freq: NEEDED Status: Active Protocol: Document 08/17/22 14:25 LJ (Rec: 08/17/22 14:55 LJ [id number]) PT Summary Assessment and Plan Potential Rehabilitation Potential Good Status of Condition at Evaluation Evolving Summary Impairments Pain,ROM,Strength,Balance, Coordination,Bed Mobility, Transfers,Gait,Activity Tolerance Progress Towards Goals Progressing Toward Goals Assessment Summary Pt requiring less assist with transfers and gait. Will conduct CGT tomorrow at 1300 and trial stairs Goals Bed Mobility Goal Standby Assistance Transfer Goal Standby Assistance,Front Wheeled Walker Gait Goal Standby Assistance,Front Wheel Walker Gait Distance 150 Other Goals up/down 2steps using crutches SBA up/down 14 steps using R rail +SPC or crutches SBA Days to Meet Goals 5 Frequency of Treatment Frequency Of Treatment Twice a Day Treatment Plan Physical Therapy Treatment Plan Bed Mobility Training,Transfer Training,Gait Training, Therapeutic Exercise,Balance Retraining,Post Op Education, Discharge Planning,Hot or Cold Pack,Neuromuscular Re-ed, Coordination Retraining,Manual Therapy Precautions Lumbar Precautions Log Roll,No Twisting,Limit Bending,Lifting Restriction of 10 lbs,Gait Belt above Incisional Area Recommendations To Nursing Amount of Assist Needed 1 Person Assist Discharge Recommendations PT Discharge Recommendations Home with Assistance,Home Health
[2022-08-17] MEDS: INSULIN GLARGINE 100 UNIT/ML 3ML PEN 15 UNIT SUBCUT (20:51)
[2022-08-17] MEDS: GABAPENTIN 300 MG CAPSULE 600 MG PO (20:53)
[2022-08-17] MEDS: SENNOSIDES 8.6 MG TABLET 17.2 MG PO (20:53)
[2022-08-17] MEDS: AMLODIPINE 5 MG TABLET 10 MG PO (20:54)
[2022-08-17] MEDS: LOSARTAN 50 MG TABLET 100 MG PO (20:54)
[2022-08-18 02:15] VITALS: BP 124/56; PULSE 90; RESP 16; TEMP 36.7; O2SAT 94
--- NOTE | 2022-08-18 07:48 | PM.DS.1 ---
History of Present Illness History of Present Illness Date Patient Seen: 08/18/22 Time Patient Seen: 07:48 Chief complaint: INPT Narrative: Operative Date/Time/Diagnoses Date of procedure: 08/16/22 Time of procedure: 12:45 Pre-op diagnosis: 1. L4-5, L5-S1 spinal stenosis 2. Lumbar post laminectomy syndrome Post-op diagnosis: same Procedure & Clinicians Procedure: 1. L4-5, L5-S1 Postero-lateral and posterior interbody fusion 2. L4-5, L5-S1 interbody cage placement. 3. L4-5, L5-S1 decompressive laminectomy with bilateral facetecomies 4. L4-5, L5-S1 Posterior segmental instrumentation 5. 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 Utilization of microsurgical technique and operating microscope 7. Utilization of robotic assisted navigation Same procedure as scheduled: Yes Indications: Patient has been having chronic back pain and worsening lumbar radiculopathy. Patient had history of laminectomy in the past with worsening lumbar symptoms recently. Patient failed multiple conservative management with worsening pain weakness and numbness in his lower extremity.? Patient has been having difficulty performing activity of daily living.? After discussing risks benefits of treatment options, patient elected proceed with surgery. Surgeon: Jarrod Barbosa Liberal Arts Dean: Ramón Monte Click Yes if Unassisted: No Anesthesia Type: General Operative Notes Closure Type: primary Specimen(s): none sent Prosthetic devices, grafts, tissues, transplants, or devices: GLobus CREO MIS screws, RIse cages Applied: catheter Estimated Blood Loss (mL): 100 Blood products transfused: none Discharge Providers Provider Date of admission: 08/16/22 10:32 Discharge Date: 08/18/22 Primary care physician: Lea Britton MD Consults: 08/04/22 15:18 Consult to Anesthesiology Routine Comment: Consulting Provider: Anesthesiologist Reason for consultation: PA w/surgeon office requested re: EKG changes 08/16/22 16:14 Consult to Occupational Therapy Evaluate & Treat Comment: Physician Instructions: Evaluate and treat Consult to Physical Therapy Evaluate & Treat Comment: Physician Instructions: Evaluate and Treat Discharge provider: Ofelia Jones PA-C Summary Hospital Course Discharge Diagnosis: Lumbar spinal stenosis and post-laminectomy syndrome, s/p lumbar fusion Factor V leiden mutation Hospital Course: Mr Celis's hospital course was remarkable for slow progress w/ PT and dysuria. He was evaluated by PT throughout his stay and they thought he was most appropriate for discharge w/ HH. On the morning of POD# 2, he was complaining of dysuria. He denied pain or blood but complained of urgency accompanied by very little volume. He has a remote history of UTI and denies h/o BPH. He did have a moreno catheter placed for surgery, and this was removed yesterday. His pain was well-controlled with hydrocodone. He was eating without difficulty. He would like to go home if urinary issues are resolved. Exam Vital Signs (past 8 hours): - 08/18/22 02:15 Temperature 98.0 F Pulse Rate 90 Respiratory Rate 16 Blood Pressure 124/56 L Pulse Oximetry 94 Oxygen Flow Rate 1 Fraction of Inspired Oxygen 28 Oxygen Delivery Method Nasal Cannula Oxygen Flow Rate 1 Narrative Exam Narrative: 5/5 strength in hip flexors, quadiceps, hamstrings, DF, PF, EHL bilaterally. Sensation to light touch intact in BLE. Calves soft, compressible, nontender and without palpable cords or masses. Dressings placed intraoperatively are CDI. Blood glucose checks have exceeded 200 only once; no additional insulin required. Objective Labs 08/17/22 05:30 [facility] Medical History Bladder cancer CKD stage G3a/A2, GFR 45-59 and albumin creatinine ratio 30-299 mg/g Diabetes Factor V Leiden mutation Hemidiaphragm paralysis History of DVT of lower extremity HTN (hypertension) Infectious viral hepatitis Pulmonary emboli (~03/2018) Pulmonary nodules Saddle pulmonary embolus (~03/2018) Syncope Trochanteric bursitis Venous thromboembolism (VTE) Surgical History History of arthroscopy of hip (02/27/21) History of colonoscopy (12/26/17) History of ERCP (~2011) Hx of appendectomy (~1948) Hx of cholecystectomy (~2011) Hx of colonoscopy (12/26/17) Hx of cystoscopy (12/08/18) Hx of hernia repair Hx of laminectomy (02/20/19) Hx of transurethral resection of prostate Social History household members: spouse Smoking Status: Never smoker Discharge Assessment & Plan Assessment and Plan Assessment: 1) Lumbar spinal stenosis and post-laminectomy syndrome, s/p lumbar fusion 2) Factor V leiden mutation 3) Dysuria Plan of Treatment: 1) Discharge home later today with home health OT/PT once urinary issues have been appropriately addressed/resolved (see below). Multimodal pain control, f/u in office in two weeks. 2) Pt has a warfarin/lovenox plan from his PCP, Lea Britton. Will restart warfarin 10mg and enoxaparin 100mg today, and he will continue plan per Dr Britton's instructions. 3) Will send stat UA and follow for results, treat for UTI if appropriate. Will give a dose of tamsulosin this morning to see if that helps in the event that sxs are related to BPH. Discharge Plan Discharge Plan Patient Disposition: Home Health Service Transfer to: Home Health, Other Discharge orders & Medications Prescriptions: New hydrocodone-acetaminophen 5-325 mg Tablet 1 tab PO Q4H PRN (Reason: Pain, Moderate (4-6)) Qty: 60 0RF docusate sodium 100 mg Capsule 100 mg PO BID PRN (Reason: constipation) Qty: 60 1RF Continued amlodipine 10 mg Tablet 10 mg PO BEDTIME omeprazole 20 mg Capsule,Delayed Release(Dr/Ec) 20 mg PO PRN PRN (Reason: Heartburn) losartan 100 mg Tablet 100 mg PO BEDTIME gabapentin 100 mg Capsule 300 mg PO DIRECTED Label Comments: 300mg qam, 600mg qpm cholecalciferol (vitamin D3) [Vitamin D3] 5,000 unit Tablet 5,000 unit PO DAILY hydrocodone-acetaminophen [[place]] 5-325 mg tablet See Rx Instructions .ROUTE .COMPLEX PRN (Reason: pain) Qty: 14 0RF Rx Instructions: 1-2 tab PO q4h prn pain warfarin 5 mg Tablet 7.5 mg PO WEEKLY Label Comments: 5mg all other days warfarin 5 mg Tablet 5 mg PO DAILY Label Comments: 7.5mg all other days Lantus Solostar U-100 Insulin 15 unit SUBCUT BEDTIME Label Comments: May increase by 2 units as needed to control blood sugar hydroxyzine pamoate [Vistaril] 25 mg capsule 25 mg PO BEDTIME PRN (Reason: Anxiety) enoxaparin 100 mg/mL syringe 1 mg SUBCUT BID Follow up/Referrals: Lea Britton MD [Primary Care Provider] - Jarrod Barbosa MD [Physician] - As previously scheduled (Follow up w/ Ramón Monte PA-C, on 08/31/2022 @ 11:10 am at [facility] office in [place].) Diet/Activity/Treatments Activity: No deep bending or twisting at waist. No lifting more than 10 pounds. Cold/Heat Therapy: Heating pad to low back as needed for pain. Skin/Wound/Dressing Care Report to your healthcare provider any signs of infection, such as:: chills, fever, night sweats, unusual drainage and unusual redness Dressing: May shower. Keep dressing as dry as possible. If dressing becomes wet or dirty inside, remove and replace with clean, dry gauze. No bathing or otherwise soaking incisions. Do not apply any creams, lotions, or ointments to incisions. Visit Report/Discharge Packet Instructions: DI for Prescription Opioid Use, DI for Transforaminal Lumbar Interbody Fusion Stand Alone Forms: Patient Portal/API, Stroke Signs & Symptoms, Surgery Discharge Discharge Data Primary Care Provider: Lea Britton Quality VTE Deep Vein Thrombosis/Pulmonary Embolism Present on Admission: No
[2022-08-18 08:00] VITALS: BP 127/64; PULSE 99; RESP 17; TEMP 36.4; O2SAT 93
[2022-08-18 08:08] LABS: Appearance Urine UA CLEAR; Bilirubin Urine UA NEGATIVE (NEGATIVE); Color Urine UA YELLOW; Glucose Urine UA NEGATIVE (Negative); Ketones Urine UA NEGATIVE (NEGATIVE); Leukocyte Esterase Urine UA NEGATIVE (NEGATIVE); Nitrite Urine UA NEGATIVE (Negative); Occult Blood Urine UA 1+ (Negative); Protein Urine UA 1+ (Negative); Urobilinogen Urine UA 0.2 E.U./dL (0.2)
[2022-08-18 08:16] LABS: Bacteria Urine None Seen; Culture Indicated Urine Cult Not Indicated; RBC Urine 1-5/HPF (0-5/HPF); Squamous Epithelial Cell Urine 0-1 /HPF (0-5/HPF); WBC Urine 1-5/HPF (0-5/HPF)
[2022-08-18] MEDS: ENOXAPARIN 100 MG/ML SYRINGE SUBCUT (09:10)
[2022-08-18] MEDS: GABAPENTIN 300 MG CAPSULE PO (09:11)
[2022-08-18] MEDS: DOCUSATE 100 MG CAPSULE PO (09:11)
[2022-08-18] MEDS: WARFARIN 5 MG TABLET 10 MG PO (09:11)
[2022-08-18] MEDS: TAMSULOSIN 0.4 MG CAPSULE PO (09:12)
[2022-08-18] MEDS: CHOLECALCIFEROL (VITAMIN D3) 5,000 UNIT TABLET 5000 UNIT PO (09:30)
--- NOTE | 2022-08-18 09:34 | OT.IP.EVAL ---
Current Diagnoses Other spondylosis with radiculopathy, lumbar region (08/16/22) Postlaminectomy syndrome, not elsewhere classified (08/16/22) Arthrodesis status (08/16/22) Surgery Performed Operation Date: 08/16/22 12:15 Actual Procedures p L4-5, L5-S1 TLIF w. posterior instrumentation -Robot - Jarrod Barbosa MD Past Medical History (Last Reviewed 08/17/22 @ 07:36 by Lea Manzano PA-C) Bladder cancer CKD stage G3a/A2, GFR 45-59 and albumin creatinine ratio 30-299 mg/g Diabetes Factor V Leiden mutation Hemidiaphragm paralysis History of DVT of lower extremity HTN (hypertension) Infectious viral hepatitis Pulmonary emboli (~03/2018) Pulmonary nodules Saddle pulmonary embolus (~03/2018) Syncope Trochanteric bursitis Venous thromboembolism (VTE) Surgical History (Last Reviewed 08/17/22 @ 07:36 by Lea Manzano PA-C) History of arthroscopy of hip (02/27/21) History of colonoscopy (12/26/17) History of ERCP (~2011) Hx of appendectomy (~194) Hx of cholecystectomy (~2011) Hx of colonoscopy (12/26/17) Hx of cystoscopy (12/08/18) Hx of hernia repair Hx of laminectomy (02/20/19) Hx of transurethral resection of prostate Occupational Therapy Inpatient Evaluation/Re-Eval M1 PT/OT-IP Prior Functional Status Start: 08/17/22 11:27 Freq: NEEDED Status: Active Protocol: Document 08/17/22 12:39 [facility] (Rec: 08/17/22 17:11 [facility] [id number]) Medical Review Prior Functional Status Medical History Reviewed Yes Communication able to make needs known Mobility and Gait pt stated that he is modified independent with all mobilities and ambulation using a SPC; has been using crutches for stair climbing Activities of Daily Living and IADL's Pt states able to do all his ADl's with increased time. Social History Household Members spouse Living Arrangements House Number of Floors (Floors) Two Floors Number of Stairs To Enter/Railing? 2 steps to enter without rails has 14 steps R rail ascending to bedroom level Home Environment High Toilet,Walk in Shower Home Equipment Front Wheel Walker,Straight Cane,Crutches,Hand Held Shower Additional Social History Comment pt has an adjustable bed M2 OT-IP Current Condition Start: 08/17/22 16:57 Freq: Status: Active Protocol: Document 08/17/22 12:39 [facility] (Rec: 08/17/22 17:11 [facility] [id number]) Occupational Therapy Current Condition Current Condition Evaluation Date 08/17/22 Treatment Diagnosis S/p L4-5, L5-S1 TLIF Diagnosis Onset Date Post Operative Precautions Lumbar Precautions Log Roll,No Twisting,Limit Bending,Lifting Restriction of 10 lbs,Gait Belt above Incisional Area M3 OT- IP Subjective and Pain Start: 08/17/22 16:57 Freq: Status: Active Protocol: Document 08/18/22 09:59 [facility] (Rec: 08/18/22 10:19 [facility] [id number]) OT- Subjective Occupational Therapy Visit Type Type Treatment Note Visit Start Time 09:34 Visit Stop Time 09:53 Total Visit Minutes 19 Occupational Therapy Visit Comments Patient Comments Pt not wanting to shower or get dressed at this time but agreed to work on bed mobility needs. Patient/Caregiver Goals To go home. OT Pain Assessment Pain When Pain Assessed During Mobility Pain Present Pain Present Pain Reported M4 OT- IP ADL's Start: 08/17/22 16:57 Freq: Status: Active Protocol: Document 08/18/22 09:59 [facility] (Rec: 08/18/22 10:19 [facility] [id number]) OT [id number] Comments OT Self-Feeding Comments No issues anticipated. OT ADL-Grooming Comments OT Grooming Comments Not performed OT ADL-Oral Care Comments Oral Care Comments Not performed OT ADL-Dressing Comments OT Dressing Comments Pt states will probably just have his to assist with LB dressing needs and has not ordered LB dressing equipment yet. OT ADL-Bathing Comments OT Bathing Comments Pt states will just sponge bath at home for now or possibly consider getting a shower chair. M5 OT- IP IADL's Start: 08/17/22 16:57 Freq: Status: Active Protocol: Document 08/17/22 12:39 [facility] (Rec: 08/17/22 17:11 [facility] [id number]) OT-Instrumental Activities of Daily Living Home Safety Awareness Awareness of Need for Assistance at Home Good Awareness Home Safety Comments Pt's to assist pt as needed as home. M6 OT- IP Functional Cognition Start: 08/17/22 16:57 Freq: Status: Active Protocol: Document 08/18/22 09:59 [facility] (Rec: 08/18/22 10:19 [facility] [id number]) Cognitive Factors Limiting Selfcare Function Cognitive Ability Safety Awareness Decreased Ability to Apply Precautions,Underestimates Need for Assistance Cognitive Comments Cognitive Assessment Comments Pt is a little insistent on his needs and needing lots of education and encouragement to follow log rolling in bed. Pt not wanting to shower or get dressed and states that he will be fine at home. TO touch base with his later when she comes in. M7 OT- IP Mobility and Balance Start: 08/17/22 16:57 Freq: Status: Active Protocol: Document 08/18/22 09:59 [facility] (Rec: 08/18/22 10:19 [facility] [id number]) OT- Bed Mobility Assessment Supine to Sit Supine to Sit Assist Standby Assistance,Moderate Assistance Sit to Supine Sit to Supine Assist Standby Assistance,Moderate Assistance OT-Transfer Assessment Sit to and From Stand Sit to and from Stand Minimal Assistance Transfers Transfer Ability Contact Guard Assistance Technique Transfer Destination Bed,Chair Transfer Technique Stand Step Pivot Devices Transfer Assistive Devices Gait Belt,Front Wheeled Walker Comments Mobility Comments Pt having difficulty with bed mobility and needing assist and cues to keep all the way turned before hinging up on his hip to get upright. Suggested and trial on having the FWW for the pt to use and grab to help keep him side lying during log rolling needs and pt much more independent and successful. Therefore OT or STRAP MACHINE OPERATOR AUTOMATIC to go over with his of using the fww as a grab bar to help get pt into or out of the bed. Otherwise pt considering just sleeping in his recliner/ Pt still having difficulty with transition to stand and needing cues to straighten his legs and and to be sure to always hold to the armrest of the recliner or handle on the FWW. OT- Balance Assessment Sitting Balance and Reactions Static Sitting Balance Ability Good Dynamic Sitting Balance Ability Good Standing Balance and Reactions Static Standing Balance Ability Fair Dynamic Standing Balance Ability Poor M9 OT- IP Assessment and Plan Start: 08/17/22 16:57 Freq: Status: Active Protocol: Document 08/18/22 09:59 [facility] (Rec: 08/18/22 10:19 [facility] [id number]) OT Summary Assessment and Plan Potential Rehabilitation Potential Good Analytic Complexity at Evaluation Low Summary OT Impairments Pain,Balance,Functional Mobility,Dressing,Toileting, Bathing,Toilet Transfers, Shower Transfers Progress Towards Goals Progressing Toward Goals Assessment Summary Pt doing much better however still having difficulty to come to stand and needing COMPA at times. Pt able to practice use FWW to pull to for bed mobility needs. Pt looking to go home with his to assist. Goals Grooming Goal Independent Dressing Goal Minimal Assistance Toileting Goal Standby Assistance Bathing Goal Minimal Assistance Toilet Transfer Goal Independent Shower Transfer Goal Standby Assistance Days to Meet Goals 5 Frequency of Treatment Frequency Of Treatment Once a Day Treatment Plan OT Treatment Plan ADL Training,Functional Mobility,Patient/Family Education,Discharge Planning Discharge Recommendations OT Discharge Recommendations Home with Assistance,Home Health Home Equipment Needs shower chair, LB dressing equipment Transportation Needs at Discharge Private Vehicle
--- NOTE | 2022-08-18 10:31 | PT.IPTN ---
Current Diagnoses Other spondylosis with radiculopathy, lumbar region (08/16/22) Postlaminectomy syndrome, not elsewhere classified (08/16/22) Arthrodesis status (08/16/22) Surgery Performed Operation Date: 08/16/22 12:15 Actual Procedures p L4-5, L5-S1 TLIF w. posterior instrumentation -Robot - Jarrod Barbosa MD Physical Therapy Treatment Note M2 PT-IP Current Condition Start: 08/17/22 11:27 Freq: NEEDED Status: Active Protocol: Document 08/17/22 10:15 [facility] (Rec: 08/17/22 11:42 [facility] [id number]) Physical Therapy Current Condition Current Condition Evaluation Date 08/17/22 Treatment Diagnosis s/p L4-5, L5S1 TLIF; difficulty in walking Onset Date 08/16/22 M3 PT-IP Subjective Start: 08/17/22 11:27 Freq: NEEDED Status: Active Protocol: Document 08/18/22 10:12 [facility] (Rec: 08/18/22 10:31 [facility] [id number]) Subjective Physical Therapy Visit Type Type Treatment Note Visit Start Time 08:48 Visit Stop Time 09:05 Total Visit Minutes 17 Number of FLUTE POLISHER Visits 2 Physical Therapy Visit Comments Patient Comments agreeable to do PT Therapy Pain Assessment Pain When Pain Assessed At Rest Pain Present Pain Present Pain Reported M4 PT-IP Mobility and Gait Start: 08/17/22 11:27 Freq: NEEDED Status: Active Protocol: Document 08/18/22 10:12 LJ (Rec: 08/18/22 10:31 [facility] [id number]) PT-Bed Mobility Assessment Rolling Type of Rolling Roll to Left Level of Assist Standby Assistance Supine to Sit Supine to Sit Standby Assistance,1 Person Assistance,Head of Bed Elevated,Bedrails Scooting Scooting to Edge of Bed Standby Assistance PT-Transfer Assessment Sit to and From Stand Sit to and from Stand Contact Guard Assistance, Minimal Assistance,1 Person Assistance,Use of Upper Extremities Equipment Transfer Assistive Device Gait Belt,Front Wheeled Walker Orthotic/Prosthetic Devices or Brace: No Transfers Transfer Destination Chair Transfer Technique ambulated Transfer Ability Level of Assist Contact Guard Assistance, Minimal Assistance,1 Person Assistance,Use of Upper Extremities Comments Mobility Comments Pt in bed upon arrival. Willing to work with PT. Pt required Chloe SL>sitting on EOB. CGA sit>stand from bed. Pt instructed to stand for a little while prior to ambulation out to hallway. Pt willing to attempt stairs. Stated he had a right side handrail to use. Pt ambulated to stairs with good use of FWW and gooe posture. Completed stairs x2 then ambulated back to room. Only 1 cue for relaxing shoulders. Pt ambulated to chair and sat down carefully using hands on armrests. Pt left in room with all needs within reach. Gait Assessment Gait Gait Assistance Required: Standby Assistance,1 Person Assist Distance (Feet) 200 Able to Maintain Weight Bearing Status Yes During Gait Assistive Devices Assistive Device Gait Belt,Front Wheeled Walker Orthotic/Prosthetic Devices or Brace: No Gait Deviations General Gait Pattern Decreased Stride Length, Decreased Feet Clearance Factors Limiting Gait Function Factors Limiting Gait Function Decreased Activity Tolerance, Decreased Strength,Limited Range of Motion,Pain,Poor Balance Comments Gait Comments see mobility Stair Climbing Assessment Evaluation Level of Assist On Stairs Standby Assistance Devices Stair Climbing Assistive Devices Left Railing,Right Railing Technique/Endurance Stair Climbing Direction Ascend and Descend Stair Climbing Technique Step to Step Number of Steps Climbed 3 Stair Climbing Set # Repetitions (reps) 2 Comments Stair Climbing Comments Pt used right railing for ascent and left for descent to simulate home environment. Stated he had rail on right however previously stated no rails and he used axillary crutches to do stairs. M5 PT-IP Objective Assessments Start: 08/17/22 11:27 Freq: NEEDED Status: Active Protocol: Document 08/17/22 10:15 [facility] (Rec: 08/17/22 11:42 [facility] [id number]) Orientation Orientation/Cognition Level of Alertness Alert Orientation Name,Place,Situation Language Function Ability No Deficits Noted Safety Awareness Decreased Safety Awareness Memory Description No Deficits Noted Gross Range of Motion Lower Extremity ROM Assessment Within Functional Limits Strength Lower Extremity Strength Assessment Bilaterally Impaired Hip 3+/5 Knee 4-/5 Sensation Assessment Sensation Gross Sensation WNL Muscle Tone Muscle Tone WNL Yes M6 PT-IP Treatment Start: 08/17/22 11:27 Freq: NEEDED Status: Active Protocol: Document 08/18/22 10:12 WILL[facility] (Rec: 08/18/22 10:31 LJ [id number]) Physical Therapy Treatment Education Education Provided Safety M7 PT-IP Assessment and Plan Start: 08/17/22 11:27 Freq: NEEDED Status: Active Protocol: Document 08/18/22 10:12 WILLIE (Rec: 08/18/22 10:31 [facility] [id number]) PT Summary Assessment and Plan Potential Rehabilitation Potential Good Status of Condition at Evaluation Evolving Summary Impairments Pain,ROM,Strength,Balance, Coordination,Bed Mobility, Transfers,Gait,Activity Tolerance Progress Towards Goals Progressing Toward Goals Goals Bed Mobility Goal Standby Assistance Transfer Goal Standby Assistance,Front Wheeled Walker Gait Goal Standby Assistance,Front Wheel Walker Gait Distance 150 Other Goals up/down 2steps using crutches SBA up/down 14 steps using R rail +SPC or crutches SBA Days to Meet Goals 5 Frequency of Treatment Frequency Of Treatment Twice a Day Treatment Plan Physical Therapy Treatment Plan Bed Mobility Training,Transfer Training,Gait Training, Therapeutic Exercise,Balance Retraining,Post Op Education, Discharge Planning,Hot or Cold Pack,Neuromuscular Re-ed, Coordination Retraining,Manual Therapy Precautions Lumbar Precautions Log Roll,No Twisting,Limit Bending,Lifting Restriction of 10 lbs,Gait Belt above Incisional Area Recommendations To Nursing Amount of Assist Needed 1 Person Assist Discharge Recommendations PT Discharge Recommendations Home with Assistance,Home Health
[2022-08-18 11:00] VITALS: BP 97/59; PULSE 101; RESP 17; TEMP 36.2; O2SAT 93
[2022-08-18] MEDS: HYDROCODONE/ACET 5/325 TABLET 1 TAB PO (13:16)
--- NOTE | 2022-08-18 13:35 | OT.IP.TRT ---
Current Diagnoses Other spondylosis with radiculopathy, lumbar region (08/16/22) Postlaminectomy syndrome, not elsewhere classified (08/16/22) Arthrodesis status (08/16/22) Surgery Performed Operation Date: 08/16/22 12:15 Actual Procedures p L4-5, L5-S1 TLIF w. posterior instrumentation -Robot - Jarrod Barbosa MD Occupational Therapy Treatment Note M2 OT-IP Current Condition Start: 08/17/22 16:57 Freq: Status: Active Protocol: Document 08/17/22 12:39 [facility] (Rec: 08/17/22 17:11 [facility] [id number]) Occupational Therapy Current Condition Current Condition Evaluation Date 08/17/22 Treatment Diagnosis S/p L4-5, L5-S1 TLIF Diagnosis Onset Date Post Operative Precautions Lumbar Precautions Log Roll,No Twisting,Limit Bending,Lifting Restriction of 10 lbs,Gait Belt above Incisional Area M3 OT- IP Subjective and Pain Start: 08/17/22 16:57 Freq: Status: Active Protocol: Document 08/18/22 13:24 [facility] (Rec: 08/18/22 13:35 [facility] [id number]) OT- Subjective Occupational Therapy Visit Type Type Treatment Note Visit Start Time 13:15 Visit Stop Time 13:24 Total Visit Minutes 9 Occupational Therapy Visit Comments Patient Comments Able to talk to pt's regarding OT needs, therefore went to check on the pt PM. Patient/Caregiver Goals TO go home. OT Pain Assessment Pain When Pain Assessed During Mobility Pain Present Pain Present Pain Reported M4 OT- IP ADL's Start: 08/17/22 16:57 Freq: Status: Active Protocol: Document 08/18/22 13:24 [facility] (Rec: 08/18/22 13:35 [facility] [id number]) OT ADL-Dressing General Eval Upper Body Dressing Ability Minimal Assistance Lower Body Dressing Ability Maximum Assistance Comments OT Dressing Comments Pt just having his to assist him with dressing needs . Emphasized to pt to focus on stand while is assist for dressing needs. Pt's trying to pull up his pants when pt was not completely standing upright yet. M5 OT- IP IADL's Start: 08/17/22 16:57 Freq: Status: Active Protocol: Document 08/17/22 12:39 [facility] (Rec: 08/17/22 17:11 [facility] [id number]) OT-Instrumental Activities of Daily Living Home Safety Awareness Awareness of Need for Assistance at Home Good Awareness Home Safety Comments Pt's to assist pt as needed as home. M6 OT- IP Functional Cognition Start: 08/17/22 16:57 Freq: Status: Active Protocol: Document 08/18/22 13:24 [facility] (Rec: 08/18/22 13:35 [facility] [id number]) Cognitive Factors Limiting Selfcare Function Cognitive Comments Cognitive Assessment Comments Pt insistent with his care. M7 OT- IP Mobility and Balance Start: 08/17/22 16:57 Freq: Status: Active Protocol: Document 08/18/22 13:24 [facility] (Rec: 08/18/22 13:35 [facility] [id number]) OT-Transfer Assessment Comments Mobility Comments Wanting to has pt's practice with pt bed mobility need with FWW as use of a grab bar. Pt refused and insistent that they are fine and wanting to go home. OT- Balance Assessment Sitting Balance and Reactions Static Sitting Balance Ability Good Dynamic Sitting Balance Ability Good Standing Balance and Reactions Static Standing Balance Ability Fair Dynamic Standing Balance Ability Fair M9 OT- IP Assessment and Plan Start: 08/17/22 16:57 Freq: Status: Active Protocol: Document 08/18/22 13:24 [facility] (Rec: 08/18/22 13:35 [facility] [id number]) OT Summary Assessment and Plan Potential Rehabilitation Potential Good Analytic Complexity at Evaluation Low Summary OT Impairments Pain,Balance,Functional Mobility,Dressing,Toileting, Bathing,Toilet Transfers, Shower Transfers Progress Towards Goals Progressing Toward Goals Assessment Summary Pt is insistent on his care and not open to doing bed mobility with his and insists that they will be fine . Pt's assisting pt to get dressed and emphasized to make sure pt in standing and holding onto the FWW before trying to pull up his pants. Pt needing cues for safety to follow his back precautions. Pt to go home with 24/01 assist . Pt's states feel comfortable to be able to assist for all Adl and mobility needs at home. Home health would be beneficial for the pt. Goals Grooming Goal Independent Dressing Goal Minimal Assistance Toileting Goal Standby Assistance Bathing Goal Minimal Assistance Toilet Transfer Goal Independent Shower Transfer Goal Standby Assistance Days to Meet Goals 5 Frequency of Treatment Frequency Of Treatment Twice a Day Treatment Plan OT Treatment Plan ADL Training,Functional Mobility,Patient/Family Education,Discharge Planning Discharge Recommendations OT Discharge Recommendations Home with Assistance,Home Health Home Equipment Needs shower chair, LB dressing equipment Transportation Needs at Discharge Private Vehicle
--- NOTE | 2022-08-18 13:55 | PC.NURSE ---
Pt is A&OX3, VSS, afebrile on RA. +CMS to BLE's and BUE'S, ambulating with steady gait. Dressing to low back is c/d/i. He reports pain is well controlled with PRN and scheduled pain medications. BG 194. He is voiding without complaints of burning. PA notified RN urine negative for UTI. He is cleared for discharge home this afternoon after working with therapy. arrived at bedside, supportive to assist patient home. Both patient and verbalize understanding of discharge medications, activity, site care, s/sx of infection/blood clot as well as follow up appointment scheduled postoperatively. He is escorted via w/ch with all personal belongings after lunch at approximately 1347 for discharge home in private vehicle with .
== END 2022-08-18 13:47 | disposition home health service (06) | DRG 454 ==
PROVIDERS: Physician Assistant; Admitting Provider Orthopaedic Surgery Orthopaedic Surgery of the Spine; PCP Family Medicine; Referring Provider Orthopaedic Surgery Orthopaedic Surgery of the Spine; Visit Provider Orthopaedic Surgery Orthopaedic Surgery of the Spine
PROC: 01NB0ZZ Release Lumbar Nerve, Open Approach (ICD-10-PCS; principal; 2022-08-16 12:15)
DX: M48.061 Spinal stenosis, lumbar region without neurogenic claudication (principal); D68.51 Activated protein C resistance; M96.1 Postlaminectomy syndrome, not elsewhere classified; M43.16 Spondylolisthesis, lumbar region; M43.17 Spondylolisthesis, lumbosacral region; M54.16 Radiculopathy, lumbar region; E11.22 Type 2 diabetes mellitus with diabetic chronic kidney disease; I12.9 Hypertensive chronic kidney disease with stage 1 through stage 4 chronic kidney disease, or unspecified chronic kidney disease; N18.31 Chronic kidney disease, stage 3a; J98.6 Disorders of diaphragm; R30.0 Dysuria; Z20.822 Contact with and (suspected) exposure to COVID-19; F17.210 Nicotine dependence, cigarettes, uncomplicated; Z79.899 Other long term (current) drug therapy; Z79.01 Long term (current) use of anticoagulants; Z85.51 Personal history of malignant neoplasm of bladder; Z86.718 Personal history of other venous thrombosis and embolism; Z87.440 Personal history of urinary (tract) infections
CPT/HCPCS: 36415; 72100; 76000; 81001; 82962; 85014; 85018; 85610; 87635; 94760; 97116; 97162; 97165; 97530; 97535; C9803; C1831; C9290; J0690; J1100; J1650; J2405; J2704; J3010